=== PATIENT | male | born 1980 | race Caucasian/White ===

== ENCOUNTER → 2025-08-09 | Outpatient (CLI) | payer MEDICAID, SELFPAY ==
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
[2025-08-09 12:28] LABS: Hematocrit 43.4 % (40-54); Hemoglobin 14.2 g/dL (13.0-16.5); Immature Granulocytes Count 0.010 X10^3/uL (0.0-0.0); Mean Corp Hgb Conc 32.7 g/dL (32-36); Mean Corpuscular Volume 87.3 fL (80-94); Mean Platelet Vol. 10.7 fl (6.2-12.0); NRBC Flagged by Analyzer 0 % (0-5); Platelet Count 275 K/mm3 (150-450); RBC Distribution Width CV 13.2 % (11.6-14.6); RBC Distribution Width SD 42.4 fl (35.1-43.9); Red Blood Count 4.97 M/mm3 (4.6-6.2); White Blood Count 4.6 K/mm3 (4.4-11.0)
[2025-08-09 12:36] LABS: AST(SGOT) 20 U/L (<=37); Alanine Aminotransfer ALT/SGPT 19 U/L (<=46); Albumin, Serum 4.7 g/dL (3.5-5.0); Alkaline Phosphatase 55 U/L (40-129); Anion Gap 10 (5-15); BUN 15 mg/dL (4-19); BUN/Creat Ratio 15.5 RATIO (10-20); Calcium,Total 9.6 mg/dL (7.6-11.0); Carbon Dioxide 28.1 mmol/L (21.0-32.0); Chloride 102 mmol/L (98-108); Cholesterol 170 mg/dL (<=200); Globulin 2.6 g/dL (2.2-4.2); Glucose 97 mg/dL (70-99); Low Density Lipoprotein Calc. 117 mg/dL; Potassium 4.0 mmol/L (3.3-5.1); Triglycerides 112 mg/dL; Very Low Density Lipoprotein 22 mg/dL (5-40); cholesterol:hdl ratio screen 5.20
== END | disposition home or self-care (01) ==
DX: Z00.00 Encounter for general adult medical examination without abnormal findings (principal); E78.6 Lipoprotein deficiency; Z13.1 Encounter for screening for diabetes mellitus
CPT/HCPCS: 36415; 80053; 80061; 83036; 85025